=== PATIENT | male | born 1990 | race Caucasian/White ===

== ENCOUNTER 2018-03-06 14:09 | Emergency (ER) | payer OTHER ==
[2018-03-06 14:14] VITALS: BP 160/82
--- NOTE | 2018-03-06 14:24 | EDPHY ---
H & P Stated Complaint: Bit by ?spider on abd 2 days;very anxious Source: Patient Exam Limitations: No limitations - Personal History Current Tetanus Diphtheria and Acellular Pertussis (TDAP): Yes - Medical/Surgical History Other PMH: anxiety - Social History Smoking Status: Never smoked Time Seen by Provider: 03/06/18 14:23 HPI/ROS: HPI: This is a 27-year-old male who presents with Chief Complaint: Bit by ?spider on abd 2 days;very anxious Location: Right flank Quality: Rash Duration: 2 days Signs and Symptoms: no fever, no nausea, no vomiting, no diarrhea, no urinary symptoms, no chest pain, no shortness of breath, no wheezing, no cough, no sore throat, no neck stiffness, no joint pain, no swollen glands, no ear pain, + itchiness, + burning pain Timing: Worsening Severity: Moderate Context: Patient reports that Wednesday he started to develop a rash on his right flank that started near his nipple line and now has spread all the way around his side and around his back. He reports that the redness and crusting have increased. He complains of itchiness and burning pain. He admits to being under considerable stress that is work related. He is supposed to leave to go out of town tomorrow for work. He had chickenpox as a child. Denies any vision changes/fever/neck stiffness/malaise/headache/photophobia. Modifying Factors: None Comment: ROS: see HPI Constitutional: + fever, no chills, no weight loss Eyes: No blurred vision Respiratory: No shortness of breath, no cough Cardiovascular: No chest pain, no palpitations Gastrointestinal: No nausea, no vomiting, no diarrhea, no hematemesis, no blood in stool Genitourinary: No dysuria, no blood in urine Extremities: No myalgias, no edema Neurologic: No weakness, no numbness Skin: No rashes, no petechiae Hematologic: No bruising, no bleeding MEDICAL/SURGICAL/SOCIAL HISTORY: Medical history: Anxiety. Surgical history: Denies Social history: Family history noncontributory. CONSTITUTIONAL: Extremely well-appearing adult white male, awake and alert, no obvious distress HEENT: Atraumatic and normocephalic, PERRL, EOMI. Nares patent; no rhinorrhea; no nasal mucosal edema. Tympanic membranes clear. Oropharynx clear, no exudate and moist pink mucosa. Airway patent. No lymphadenopathy. No meningismus. Cardiovascular: Normal S1/S2, regular rate, regular rhythm, without murmur rub or gallop. PULMONARY/CHEST: Symmetrical and nontender. Clear to auscultation bilaterally. Good air movement. No accessory muscle usage. ABDOMEN: Soft, nondistended, nontender, no rebound, no guarding, no peritoneal signs, no masses or organomegaly. No CVAT. EXTREMITIES: 2/2 pulses, strength 5/5, no deformities, no clubbing, no cyanosis or edema. NEUROLOGICAL: no focal neuro deficits. GCS 15. SKIN: Warm and dry, maculopapular rash with small vesicles no bullae present mid thoracic dermatomal distribution. Does not cross midline. Good capillary refill. (Shelby Hallman) Constitutional: Initial Vital Signs Temperature (C) 37.1 C 03/06/18 14:10 Heart Rate 122 H 03/06/18 14:10 Respiratory Rate 22 H 03/06/18 14:10 Blood Pressure 160/82 H 03/06/18 14:10 O2 Sat (%) 100 03/06/18 14:10 O2 Delivery Mode Room Air Allergies/Adverse Reactions: No Known Allergies Allergy (Unverified 03/06/18 14:38) Home Medications: Medication Instructions Recorded Acyclovir [Zovirax] 800 mg PO 5XD #35 tab 03/06/18 Gabapentin [Neurontin 300 MG (*)] 300 mg PO HS #14 cap 03/06/18 oxyCODONE/APAP 5/325 [Percocet 1 - 2 tab PO Q4H PRN #10 tab 03/06/18 5/325 (*)] Medical Decision Making ED Course/Re-evaluation: No ophthalmic/otic involvement No signs of cellulitis/abscess. Patient is not immunocompromised. Rx for acyclovir, gabapentin, and 10 tabs of Percocet. Work note provided per request. This patient was seen under the supervision of my secondary supervising physician. I evaluated care for this patient independently. Discussed this patient with Dr. Javier who did see the patient. (Shelby Hallman) Differential Diagnosis: Differential diagnosis includes but is not limited to disseminated gonococcal disease, bullous pemphigoid, erythema multiforme major, contact dermatitis, dermatitis herpetiformis, herpes zoster. (Shelby Hallman) Other Provider: Evaluated patient in conjunction with CHARISSA Hallman. His presentation is indicative of shingles. I agree with her assessment and treatment plan for this patient. ( Raghu Javier) Departure - Departure Disposition: Home, Routine, Self-Care Clinical Impression: Shingles rash Qualifiers: Herpes zoster complications: without complications Qualified Code(s): B02.9 - Zoster without complications Condition: Good Instructions: Oxycodone/Acetaminophen (By mouth), Acyclovir (By mouth), Gabapentin (By mouth), Shingles (ED) Additional Instructions: Take Benadryl 25-50 mg every 6 hr as needed for itchiness. Take Tylenol 650 mg every 4 hours and/or Ibuprofen 600 mg every 8 hours with food as needed for pain. Take Percocet 1-2 tabs every 4 hr as needed for severe/breakthrough pain. Do not take Tylenol and Percocet at the same time. Take gabapentin 300 mg at night for neuropathic pain. Apply cool compresses for 30 minutes at a time; 2-3 times per day for the next 1 -2 days. Do not itch or scratch the rash. Establish care at [facility]. You are contagious until lesions are crusted over. Return to the ER immediately if you experience redness, red streaks, have fevers /chills, flu like symptoms, limited range of motion, or any other symptoms that concern you. Referrals: [facility],. [Clinic] - As per Instructions Stand Alone Forms: Work Excuse Prescriptions: Acyclovir [Zovirax] 800 mg PO 5XD #35 tab Gabapentin [Neurontin 300 MG (*)] 300 mg PO HS #14 cap oxyCODONE/APAP 5/325 [Percocet 5/325 (*)] 1 - 2 tab PO Q4H PRN #10 tab PRN Reason: Pain, Severe
== END 2018-03-06 14:56 | disposition home or self-care (01) ==
DX: B02.9 Zoster without complications (principal)